=== PATIENT | male | born 1985 | race Two or more races ===

== ENCOUNTER 2021-04-29 17:00 | Inpatient (IN) | payer OTHER, SELFPAY ==
[~2021-04-29] VITALS: Ht 172.7 cm; Wt 81.6 kg
[2021-04-29 17:06] VITALS: BP 121/57
[2021-04-29] MEDS ORDERED: NACL 0.9% 2,000 ML IV ONE ×2 (17:10→18:25)
[2021-04-29] MEDS ORDERED: ONDANSETRON 4 MG/2 ML VIAL ONE (17:19)
[2021-04-29] MEDS ORDERED: LORazepam 2 MG/ML VIAL ONE (17:55)
[2021-04-29] MEDS ORDERED: HALOPERIDOL IM 5 MG/ML VIAL ONE (17:55)
[2021-04-29] MEDS ORDERED: diphenhydrAMINE 50 MG/ML VIAL ONE (17:56)
[2021-04-29 18:26] LABS: HEMATOCRIT 42.9 % (36-52); HEMOGLOBIN 13.5 g/dL (12.0-18.0); MEAN CORPUSCULAR HEMOGLOBIN 30 pg (27-31); MEAN CORPUSCULAR HGB CONC 32 g/dL (33-37); PLATELET COUNT (AUTO) 443 K/uL (140-450); RED BLOOD CELL COUNT(AUTO) 4.47 MIL/uL (4.20-6.10); RED CELL DISTRIBUTION WIDTH 13.9 % (11.6-13.7)
[2021-04-29 18:34] LABS: WHITE BLOOD COUNT (AUTO) 27.8 K/uL (4.8-10.8)
[2021-04-29 18:41] LABS: LYMPHOCYTES % (MANUAL) 6 % (20-46); MONOCYTES % (MANUAL) 3 % (5-12)
[2021-04-29] MEDS ORDERED: MIDAZOLAM 5 MG/1 ML VIAL ONE (18:45)
[2021-04-29 18:49] LABS: ALBUMIN 4.1 g/dL (3.4-5.0); ANION GAP 41.2 (8-16); ASPARTATE AMINOTRANSFERASE 23 U/L (15-37); CHLORIDE 91 mmol/L (98-107); CREATININE 1.8 mg/dL (0.6-1.3); GFR ARICAN-AMERICAN 56 mL/min (>90); POTASSIUM 5.8 mmol/L (3.5-5.1); SALICYLATE 4.3 mg/dL (2.8-20.0); SODIUM SERUM 132 mmol/L (136-145); TOTAL BILIRUBIN 1.1 mg/dL (0.0-1.0); UREA NITROGEN, BLOOD 29 mg/dL (7-18)
[2021-04-29] MEDS ORDERED: MIDAZOLAM 5 MG/5 ML VIAL IV ONE (19:00)
[2021-04-29] MEDS ORDERED: diphenhydrAMINE 50 MG/ML VIAL IVP ONE (19:10)
[2021-04-29] MEDS ORDERED: PIPERACILLIN/TAZOBACTAM 4.5 GM in DEXTROSE 5% 100 ML IV SCH (19:10)
[2021-04-29] MEDS ORDERED: LORazepam 2 MG/ML VIAL IVP ONE ×2 (19:10→19:55)
[2021-04-29] MEDS ORDERED: HALOPERIDOL IM 5 MG/ML VIAL IM ONE (19:15)
[2021-04-29 19:25] LABS: CARBON DIOXIDE 5.6 mmol/L (21-32)
[2021-04-29] MEDS ORDERED: INSULIN REGULAR, HUMAN 100 UNIT in NACL 0.9% 100 ML IV SCH ×4 (19:25→21:50)
[2021-04-29] MEDS ORDERED: DEXTROSE 50% 50 ML SYR IVP PRN (19:25)
[2021-04-29] MEDS: BLOOD GLUCOSE MONITORING 1 DEV DEV FS SCH ×5 (19:35→23:25)
[2021-04-29 19:36] LABS: ACETAMINOPHEN < 0.5 ug/ml (10-30); GLUCOSE 759 mg/dL (74-106)
[2021-04-29] MEDS ORDERED: HYDROcodone/APAP 5/325 MG 1 TAB TAB PO PRN ×2 (20:20→20:30)
[2021-04-29] MEDS ORDERED: ONDANSETRON 4 MG/2 ML VIAL IVP PRN ×3 (20:20→21:50)
[2021-04-29] MEDS ORDERED: ACETAMINOPHEN 325 MG TAB PO PRN ×2 (20:20→20:30)
[2021-04-29] MEDS ORDERED: MORPHINE SULFATE 4 MG/ML SYR IVP PRN ×2 (20:20→20:30)
[2021-04-29] MEDS ORDERED: PIPERACILLIN/TAZOBACTAM 4.5 GM VIAL IV ONE (21:02)
[2021-04-29] MEDS ORDERED: DEXMEDETOMIDINE HCL 400 MCG in NACL 0.9% 96 ML IV PRN (21:20)
[2021-04-29 21:24] LABS: APPEARANCE,URINE CLEAR (CLEAR); BILIRUBIN,URINE NEGATIVE (NEGATIVE); BLOOD, URINE 2+ (NEGATIVE); COLOR,URINE YELLOW (YELLOW); LEUKOCYTE ESTERASE ,URINE NEGATIVE (NEGATIVE); NITRITE, URINE NEGATIVE (NEGATIVE); PH,URINE 5.5 (5.0-9.0); UGLUCOSE 3+ (NEGATIVE)
[2021-04-29] MEDS: DEXT 5% / NACL 0.45% 1,000 ML IV SCH (21:25)
[2021-04-29] MEDS ORDERED: LACTATED RINGERS 1,000 ML IV SCH (21:25)
[2021-04-29] MEDS: LACTATED RINGERS 1,000 ML IV SCH (21:30)
[2021-04-29 21:38] LABS: WBC,URINE 0-5 /HPF (0-5)
[2021-04-29 21:41] LABS: BARBITURATE, URINE NEGATIVE ng/ml (NEG <=200); BENZODIAZEPINE, URINE NEGATIVE ng/mL (NEG <=200); CANNABINOID, URINE POSITIVE ng/mL (NEG <=50); COCAINE, URINE NEGATIVE ng/mL (NEG <=300); OPIATE, URINE NEGATIVE ng/mL (NEG <=2000); PHENCYCLIDINE SCREEN,URINE NEGATIVE ng/mL (NEG <=25)
[2021-04-29 22:00] VITALS: BP 127/68
[2021-04-29] MEDS ORDERED: DEXMEDETOMIDINE HCL 100 MCG/ML 2 ML VIAL IV ONE (22:03)
[2021-04-29] MEDS ORDERED: PIPERACILLIN/TAZOBACTAM 3.375 GM VIAL IV ONE (22:48)
[2021-04-30] VITALS (10 sets, daily range): BP systolic 110–141; BP diastolic 62–77
[2021-04-30] MEDS ORDERED: PIPERACILLIN/TAZOBACTAM 3.375 GM in DEXTROSE 5% 50 ML IV SCH ×2
[2021-04-30] MEDS: BLOOD GLUCOSE MONITORING 1 DEV DEV FS SCH ×18 (00:25→20:33)
[2021-04-30] MEDS: PIPERACILLIN/TAZOBACTAM 3.375 GM in DEXTROSE 5% 50 ML IV SCH ×4 (00:40→17:23)
[2021-04-30 00:43] LABS: ANION GAP 28.2 (8-16); CARBON DIOXIDE 11.5 mmol/L (21-32); CREATININE 1.4 mg/dL (0.6-1.3); POTASSIUM 4.7 mmol/L (3.5-5.1)
[2021-04-30 00:47] LABS: MAGNESIUM 2.5 mg/dL (1.8-2.4)
[2021-04-30] MEDS: DEXT 5% / NACL 0.45% 1,000 ML IV SCH ×2 (03:35→11:45)
[2021-04-30] MEDS ORDERED: PIPERACILLIN/TAZOBACTAM 3.375 GM VIAL IV ONE (03:46)
[2021-04-30] MEDS: LACTATED RINGERS 1,000 ML IV SCH ×2 (05:30→13:30)
[2021-04-30 06:17] LABS: HEMATOCRIT 39.8 % (36-52); HEMOGLOBIN 13.1 g/dL (12.0-18.0); MEAN CORPUSCULAR HEMOGLOBIN 30 pg (27-31); MEAN CORPUSCULAR HGB CONC 33 g/dL (33-37); PLATELET COUNT (AUTO) 389 K/uL (140-450); RED BLOOD CELL COUNT(AUTO) 4.38 MIL/uL (4.20-6.10); RED CELL DISTRIBUTION WIDTH 13.9 % (11.6-13.7); WHITE BLOOD COUNT (AUTO) 23.9 K/uL (4.8-10.8)
[2021-04-30 06:27] LABS: ALBUMIN 3.4 g/dL (3.4-5.0); ANION GAP 19.4 (8-16); CARBON DIOXIDE 18.1 mmol/L (21-32); CREATININE 1.4 mg/dL (0.6-1.3); MAGNESIUM 2.4 mg/dL (1.8-2.4); PHOSPHORUS 2.3 mg/dL (2.5-4.9); POTASSIUM 4.5 mmol/L (3.5-5.1); TOTAL BILIRUBIN 1.2 mg/dL (0.0-1.0)
[2021-04-30 06:40] LABS: LYMPHOCYTES % (MANUAL) 7 % (20-46); MONOCYTES % (MANUAL) 3 % (5-12)
[2021-04-30 10:08] LABS: MAGNESIUM 2.2 mg/dL (1.8-2.4); PHOSPHORUS 2.4 mg/dL (2.5-4.9)
[2021-04-30 10:16] LABS: ANION GAP 14.1 (8-16); CARBON DIOXIDE 23.9 mmol/L (21-32); CREATININE 1.4 mg/dL (0.6-1.3)
[2021-04-30 12:47] LABS: ANION GAP 10.5 (8-16); CARBON DIOXIDE 25.3 mmol/L (21-32); CREATININE 1.2 mg/dL (0.6-1.3); POTASSIUM 3.8 mmol/L (3.5-5.1)
[2021-04-30 12:51] LABS: MAGNESIUM 2.1 mg/dL (1.8-2.4); PHOSPHORUS 2.4 mg/dL (2.5-4.9)
[2021-04-30] MEDS ORDERED: INSULIN LANTUS 100 UNITS/ML 10 ML VIAL SUBQ SCH (13:49)
[2021-04-30] MEDS: INSULIN LISPRO SLIDING SCALE 100 UNITS/ML VIAL SUBQ PRN (20:35)
[2021-05-01] VITALS: BP 130/66
[2021-05-01] MEDS: PIPERACILLIN/TAZOBACTAM 3.375 GM in DEXTROSE 5% 50 ML IV SCH ×2 (00:26→06:37)
[2021-05-01 04:00] VITALS: BP 134/75
[2021-05-01 05:17] LABS: BASOPHILS % (AUTO) 0.3 % (0.0-2.0); EOSINOPHILS % (AUTO) 0.2 % (0.0-4.0); HEMATOCRIT 39.1 % (36-52); LYMPHOCYTES # (AUTO) 1.6 K/uL (2.0-11.5); LYMPHOCYTES % (AUTO) 13.4 % (20.5-51.1); MEAN CORPUSCULAR HEMOGLOBIN 30 pg (27-31); MEAN CORPUSCULAR HGB CONC 33 g/dL (33-37); MEAN CORPUSCULAR VOLUME 91.2 fL (80-94); MONOCYTES # (AUTO) 0.6 K/uL (0.8-1.0); MONOCYTES % (AUTO) 4.7 % (1.7-9.3); NEUTROPHILS # (AUTO) 9.7 K/uL (1.8-7.7); NEUTROPHILS % (AUTO) 81.4 % (42.2-75.2); PLATELET COUNT (AUTO) 296 K/uL (140-450); RED BLOOD CELL COUNT(AUTO) 4.29 MIL/uL (4.20-6.10); RED CELL DISTRIBUTION WIDTH 14.1 % (11.6-13.7); WHITE BLOOD COUNT (AUTO) 11.9 K/uL (4.8-10.8)
[2021-05-01 05:30] LABS: ALBUMIN 2.9 g/dL (3.4-5.0); ANION GAP 17.7 (8-16); CARBON DIOXIDE 21.5 mmol/L (21-32); CREATININE 1.1 mg/dL (0.6-1.3); MAGNESIUM 1.8 mg/dL (1.8-2.4); PHOSPHORUS 2.3 mg/dL (2.5-4.9); POTASSIUM 4.2 mmol/L (3.5-5.1); TOTAL BILIRUBIN 1.3 mg/dL (0.0-1.0)
[2021-05-01] MEDS: BLOOD GLUCOSE MONITORING 1 DEV DEV FS SCH ×2 (06:37→11:30)
[2021-05-01] MEDS: INSULIN LISPRO SLIDING SCALE 100 UNITS/ML VIAL SUBQ PRN (06:41)
[2021-05-01 08:00] VITALS: BP 137/86
[2021-05-01] MEDS ORDERED: INSU100S22 SUBQ (11:55)
[2021-05-01] MEDS ORDERED: INSU100S54 SC (11:55)
[2021-05-01 12:00] VITALS: BP 136/87
[2021-05-01] MEDS ORDERED: INSULIN LANTUS 100 UNITS/ML 10 ML VIAL SUBQ SCH ×2 (12:45→21:00)
[2021-05-01] MEDS ORDERED: INSULIN LISPRO 100 UNITS/ML VIAL SUBQ SCH (12:45)
== END 2021-05-01 15:38 | disposition home or self-care (01) | DRG 720 ==
LOC: MED 17:00 → MIC 20:24 → MED 20:24 → MTU 04-30 17:30
PROVIDERS: ADMIT Hospitalist; ATTEND Hospitalist
DX: A41.9 Sepsis, unspecified organism (principal); R40.232 Coma scale, best motor response, extension; R40.2221 Coma scale, best verbal response, incomprehensible words, in the field [EMT or ambulance]; E11.10 Type 2 diabetes mellitus with ketoacidosis without coma; G92.9 Unspecified toxic encephalopathy; N17.9 Acute kidney failure, unspecified; T43.621A Poisoning by amphetamines, accidental (unintentional), initial encounter; E87.5 Hyperkalemia; Z20.822 Contact with and (suspected) exposure to COVID-19; F15.10 Other stimulant abuse, uncomplicated; E86.0 Dehydration; F12.10 Cannabis abuse, uncomplicated; Y92.89 Other specified places as the place of occurrence of the external cause; Z71.51 Drug abuse counseling and surveillance of drug abuser; R40.2131 Coma scale, eyes open, to sound, in the field [EMT or ambulance]
CPT/HCPCS: 36415; 70450; 71045; 80048; 80053; 80305; 81001; 82009; 82550; 82803; 82948; 83735; 84100; 84484; 85025; 87040; 87081; 93005; 96361; 96372; 96374; 96375; 99291; G0480; G0482; J1200; J1630; J1644; J1815; J2060; J2250; J2405; J2543; J7060; Q0092

== ENCOUNTER 2021-05-01 15:04 | Emergency (ER) | payer OTHER, SELFPAY ==
[~2021-05-01] VITALS: Ht 172.7 cm; Wt 75.3 kg
[~2021-05-01 15:04] MED LIST: INSU100S22 SUBQ; INSU100S54 SC
[2021-05-01 15:08] VITALS: BP 146/90
--- NOTE | 2021-05-01 15:08 | NUR ---
ZEB SQUIRES ALS TO ER BED 1
--- NOTE | 2021-05-01 15:10 | NUR ---
35 Y/O MALE BIBA FROM [facility] C/O DIZZINESS, WEAKNESS, AND NEAR SYNCOPAL EPISODE TODAY. PT WAS D/C TODAY AFTER BEING ADMITTED FOR SEPSIS/DKA. BS 261 AT THIS TIME. PT A/O X3, UNAWARE OF TIME. PT DENIES ETOH/DRUGS. PT DENIES CP/SOB. PT STATES HE FELL AND HIT THE BACK OF HIS HEAD, DENIES LOC. SKIN INTACT. PT AMBULATES WITH STEADY GAIT.PT DENIES DIZZINESS NOW AND STATES THAT HE IS JUST TIRED. 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
--- NOTE | 2021-05-01 15:10 | NUR ---
Note undone in EDM - 05/01/21 at 1701 by [email or web address] 35 Y/O MALE BIBA FROM [facility] C/O DIZZINESS, WEAKNESS, AND NEAR SYNCOPAL EPISODE TODAY. PT WAS D/C TODAY AFTER BEING ADMITTED FOR SEPSIS/DKA. BS 261 AT THIS TIME. PT A/O X3, UNAWARE OF TIME. PT DENIES ETOH/DRUGS. PT DENIES CP/SOB. PT STATES HE FELL AND HIT THE BACK OF HIS HEAD, DENIES LOC. SKIN INTACT. PT AMBULATES WITH STEADY GAIT. PT STATES THAT HE IS JUST TIRED. 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
--- NOTE | 2021-05-01 15:31 | NUR ---
DR PARRA AT BEDSIDE EVALUATING PT
--- NOTE | 2021-05-01 16:22 | NUR ---
Patient given written and verbal discharge instructions and verbalizes understanding. Given copies of tests performed during visit. Patient is awake, alert and oriented. Ambulatory with steady gait. Refuses offer of intermediate placement. Given list of available shelters in surrounding areas. PT GIVEN HOMELESS RESOURCE PACKET AND FOOD. PT DRESSED APPROPRIATELY. PT HAS BUS PASS. PT SIGNED HOMELESS WAIVER.
--- NOTE | 2021-05-01 17:32 | NUR ---
PATIENT IS A 35 YEAR OLD MALE ADMITTED TO [facility]/ED ON 04/29/2021 DUE TO CHEST PAIN AND SUGAR LEVELS ELEVATED. SW MET WITH PATIENT AT BEDSIDE TO DISCUSS AND GATHER PATIENTS COLLATERAL INFORMATION. PATIENT WAS AWAKE, COHERENT AND ALERT. SW DISCUSS WITH PATIENT INFORMATION AND RESOURCES AVAILABLE. PATIENT WAS COOPERATIVE DURING VISIT WITH THIS CRANE MAN; PROVIDED LIMITED INFORMATION ABOUT HIMSELF AND DECLINED ADVANCE DIRECTIVES INFORMATION STATED "I DONT HAVE ANY FAMILY THAT I CAN TRUST WITH MY DECISIONS AND I DONT NEED THAT INFORMATION" SW DISCUSS HIS LIMITED FAMILY SUPPORT SYSTEM AND ALSO PROVIDED PATIENT WITH RESOURCES FOR FOOD,HOUSING, HOMELESS SELTHERS INFORMATION. PATIENT WAS THANKFUL AND TOOK RESOURCES. PATIENT REPORTED NOT HAVING A PCP AND STATED THAT HE WILL USE AND CALL THE PCP ASSIGNED TO HIM BY HIS [facility]. SW INFORM PATIENT ABOUT A NEEDED FOLLOW UP APPOINTMENT WITHIN 7 DAYS OF DISCHARGE AND OFFER TO MAKE THE APPOINTMENT FOR PATIENT, HOWEVER PATIENT DECLINED STATING " NO I DONT WANT YOU TO DO THE APPOINTMENT ILL DO IT MY SELF " PATIENT REPORTED NOT HAVING ISSUES GETTING OR TAKING MEDICATIONS STATED THAT HE WILL HET HIS MEDICATIONS AT [facility] IN [place] [facility]. PATIENT ALSO REPORTED NOT HAVING OR NEEDING DME AND BEEN ABLE TO MOVE INDEPENDENCY. PER PATIENT HE WILL GO BACK TO SAME CARE HOME HE IS STAYING IN [place]. PATIENT REPORTED HE WILL BE LEAVING THE HOSPITAL AFTER HIS DC TO A CARE HOME IN [place]. SW WILL FOLLOW UP NEEDED
== END 2021-05-01 16:22 | disposition home or self-care (01) ==
LOC: MED 15:04
DX: R55 Syncope and collapse (principal); E11.9 Type 2 diabetes mellitus without complications; Z79.4 Long term (current) use of insulin
CPT/HCPCS: 93005; 99283